=== PATIENT | female | born 1980 | race Caucasian/White ===

== ENCOUNTER 2024-06-18 08:04 | Outpatient (OUT) | payer OTHER, SELFPAY ==
--- NOTE | 2024-06-18 | XR_ITS ---
[address] [address] Patient Name: JEYSON RAMOS MRN: [id number] date: 1980 Sex: F Assigned Patient Location: Current Patient Location: Accession/Order Number: [id number] Exam Date: 06/18/2024 08:18 Report Date: 06/19/2024 09:24 At the request of: PRITI GRIMALDO Procedure: XR ankle RT min 3V PROCEDURE: XR ankle RT min 3V, XR foot RT min 3V COMPARISON: None. HISTORY: RIGHT ANKLE PAIN FINDINGS: BONES:No acute fracture or dislocation of the foot or ankle. Minimal degenerative changes with marginal osteophyte formation SOFT TISSUES:Moderate ankle soft tissue swelling EFFUSION:None visible. OTHER: Negative. XR/XR ankle RT min 3V IMPRESSION: Soft tissue swelling No acute fracture of the ankle or foot Electronically authenticated by: PAPO BROWN Date: 06/19/2024 09:24
--- NOTE | 2024-06-18 | XR_ITS ---
[address] [address] Patient Name: JEYSON RAMOS MRN: [id number] date: 1980 Sex: F Assigned Patient Location: Current Patient Location: Accession/Order Number: [id number] Exam Date: 06/18/2024 08:18 Report Date: 06/19/2024 09:24 At the request of: PRITI GRIMALDO Procedure: XR foot RT min 3V PROCEDURE: XR ankle RT min 3V, XR foot RT min 3V COMPARISON: None. HISTORY: RIGHT ANKLE PAIN FINDINGS: BONES:No acute fracture or dislocation of the foot or ankle. Minimal degenerative changes with marginal osteophyte formation SOFT TISSUES:Moderate ankle soft tissue swelling EFFUSION:None visible. OTHER: Negative. XR/XR foot RT min 3V IMPRESSION: Soft tissue swelling No acute fracture of the ankle or foot Electronically authenticated by: PAPO BROWN Date: 06/19/2024 09:24
== END 2024-06-18 08:05 | disposition home or self-care (01) ==
LOC: EC 08:04
PROVIDERS: Visit Provider Podiatrist Foot & Ankle Surgery
DX: M25.571 Pain in right ankle and joints of right foot (principal); M25.471 Effusion, right ankle
CPT/HCPCS: 73610; 73630